=== PATIENT | female | born 1930 | race Caucasian/White ===

== ENCOUNTER 2016-07-24 09:46 | Outpatient (RCR) | payer MEDICARE, BC ==
[2016-05-20 14:11] VITALS: BP 187/74
[~2016-07-24 09:46] MED LIST: ATIVAN0.5 MG PO; CALCIUM 600 MG-1 TAB PO; DAILY VALUE1 EACH PO; ECOTRIN325 M1 PO; ENABLEX7.5 MG PO; FELODIPINE ER2.5 MG PO; GOOD SENSE ASPI81 M1 PO; HCTZ PO; HYDROCHLOROTH12.5 M1 PO; LEVAQUIN 5500 MG/TA1 PO; LEVOFLOXACIN500 M1 PO; LISINOPRIL20 MG PO; METOPROLOL SUCC50 M1 PO; MOBIC15 M1 PO; OMEGA-31 SGL PO; OMEPRAZOLE20 MG PO; PREMARIN 0.60.625 M1 VG; PROBIOTIC1 EAC1 PO; TYLENOL 650MG650 M2 PO; ZESTRIL40 MG PO; ZOFRAN ODT8 MG PO
== END 2016-08-21 13:22 ==
LOC: OPPGERO 09:46
DX: F32.1 Major depressive disorder, single episode, moderate (principal); F41.1 Generalized anxiety disorder

== ENCOUNTER 2016-08-22 10:36 | Outpatient (RCR) | payer MEDICARE, BC ==
[2016-05-20 14:11] VITALS: BP 187/74
== END 2016-09-18 10:27 ==
LOC: OPPGERO 10:36
DX: F32.1 Major depressive disorder, single episode, moderate (principal); F41.1 Generalized anxiety disorder

== ENCOUNTER 2016-09-19 07:47 | Outpatient (RCR) | payer MEDICARE, BC ==
[2016-05-20 14:11] VITALS: BP 187/74
== END 2016-10-19 15:06 ==
LOC: OPPGERO 07:47
DX: F32.1 Major depressive disorder, single episode, moderate (principal); F41.1 Generalized anxiety disorder

== ENCOUNTER 2016-10-20 09:00 | Outpatient (RCR) | payer MEDICARE, BC ==
[2016-05-20 14:11] VITALS: BP 187/74
== END 2016-11-16 15:32 ==
LOC: OPPGERO 09:00
DX: F32.1 Major depressive disorder, single episode, moderate (principal); F41.1 Generalized anxiety disorder

== ENCOUNTER 2016-11-19 08:31 | Outpatient (RCR) | payer MEDICARE, BC ==
[2016-05-20 14:11] VITALS: BP 187/74
== END 2016-12-19 16:54 ==
LOC: OPPGERO 08:31
DX: F32.1 Major depressive disorder, single episode, moderate (principal); F41.1 Generalized anxiety disorder

== ENCOUNTER 2017-01-03 12:00 | Inpatient (IN) | payer MEDICARE, BC ==
[~2017-01-03] VITALS: Ht 162.6 cm; Wt 67.1 kg
[2017-01-03 12:27] VITALS: BP 155/70
[2017-01-03 12:47] VITALS: BP 155/70
[2017-01-03] MEDS ORDERED: ASPIRIN 32325 MG/TAB PO (12:59)
[2017-01-03] MEDS ORDERED: NORCO 325 MG-51 TA1 PO (12:59)
[2017-01-03] MEDS ORDERED: ACEROLA C500 MG PO (13:00)
[2017-01-03] MEDS ORDERED: PREMARIN VAG42.5 GM VG (13:01)
[2017-01-03] MEDS ORDERED: ESCITALOPRAM5 MG PO (13:02)
[2017-01-03] MEDS ORDERED: LISINOPRIL40 MG PO (13:02)
[2017-01-03 18:23] VITALS: BP 161/67
[2017-01-03 18:55] VITALS: BP 161/67
[2017-01-04 06:19] VITALS: BP 161/70
[2017-01-04 18:39] VITALS: BP 112/52
[2017-01-05 06:28] VITALS: BP 161/64
[2017-01-05 18:43] VITALS: BP 144/71
[2017-01-06 06:24] VITALS: BP 154/51
[2017-01-06 18:29] VITALS: BP 119/47
[2017-01-07 06:21] VITALS: BP 177/60
[2017-01-07 18:21] VITALS: BP 113/42
[2017-01-08 06:27] VITALS: BP 142/59
[2017-01-08 18:12] VITALS: BP 138/56
[2017-01-09 06:19] VITALS: BP 150/54
[2017-01-09 18:06] VITALS: BP 138/55
[2017-01-10 06:21] VITALS: BP 134/53
[2017-01-10 17:54] VITALS: BP 132/52
[2017-01-11 06:20] VITALS: BP 114/54
[2017-01-11 17:54] VITALS: BP 134/58
[2017-01-12 06:20] VITALS: BP 162/63
[2017-01-12 18:29] VITALS: BP 140/56
[2017-01-13 06:17] VITALS: BP 163/66
[2017-01-13 18:42] VITALS: BP 136/61
[2017-01-14 06:25] VITALS: BP 160/65
[2017-01-14 18:14] VITALS: BP 146/58
[2017-01-15 06:30] VITALS: BP 144/73
[2017-01-15 18:38] VITALS: BP 136/58
[2017-01-16 06:28] VITALS: BP 173/83
[2017-01-16 18:17] VITALS: BP 115/45
[2017-01-17 06:20] VITALS: BP 150/66
[2017-01-17 18:44] VITALS: BP 136/65
[2017-01-18 06:20] VITALS: BP 159/62
[2017-01-18 18:10] VITALS: BP 115/77
[2017-01-19 06:28] VITALS: BP 179/72
[2017-01-19 18:21] VITALS: BP 118/51
[2017-01-20 06:36] VITALS: BP 153/56
[2017-01-20 18:30] VITALS: BP 128/56
[2017-01-21 06:24] VITALS: BP 152/61
[2017-01-21 18:08] VITALS: BP 134/52
[2017-01-22 06:20] VITALS: BP 148/59
[2017-01-22 18:11] VITALS: BP 124/45
[2017-01-23 06:22] VITALS: BP 144/58
[2017-01-23 18:10] VITALS: BP 149/52
[2017-01-24 05:52] VITALS: BP 165/66
[2017-01-24 18:22] VITALS: BP 143/67
[2017-01-25 06:25] VITALS: BP 147/63
[2017-01-25 17:59] VITALS: BP 142/60
[2017-01-26 06:26] VITALS: BP 163/70
[2017-01-26 18:14] VITALS: BP 133/58
[2017-01-27 06:25] VITALS: BP 151/60
[2017-01-27 18:23] VITALS: BP 145/58
[2017-01-28 06:31] VITALS: BP 167/70
[2017-01-28 18:12] VITALS: BP 136/55
[2017-01-29 06:23] VITALS: BP 158/60
[2017-01-29 18:31] VITALS: BP 118/55
[2017-01-30 06:27] VITALS: BP 126/51
[2017-01-30 18:24] VITALS: BP 123/47
[2017-01-31 06:28] VITALS: BP 166/80
[2017-01-31 18:05] VITALS: BP 142/59
[2017-02-01 06:18] VITALS: BP 182/83
[2017-02-01 18:18] VITALS: BP 126/48
[2017-02-02 06:21] VITALS: BP 165/75
[2017-02-02 18:20] VITALS: BP 172/57
[2017-02-03 06:23] VITALS: BP 175/79
[2017-02-03 18:34] VITALS: BP 142/72
[2017-02-04 06:24] VITALS: BP 151/64
[2017-02-04 18:15] VITALS: BP 152/63
[2017-02-05 06:18] VITALS: BP 141/57
[2017-02-05 18:14] VITALS: BP 120/58
[2017-02-06 06:16] VITALS: BP 184/63
[2017-02-06] MEDS ORDERED: ACETAMINOPHEN325 M1 PO (12:51)
[2017-02-06 18:07] VITALS: BP 152/59
[2017-02-07 06:23] VITALS: BP 159/57
== END 2017-02-07 09:32 | disposition home health service (06) | DRG 561 ==
LOC: MED/SURG 12:00
PROVIDERS: ADMIT Physician Assistant
PROC: 0DB78ZX Excision of Stomach, Pylorus, Via Natural or Artificial Opening Endoscopic, Diagnostic (ICD-10-PCS; principal; 2017-01-07)
DX: S72.001D Fracture of unspecified part of neck of right femur, subsequent encounter for closed fracture with routine healing (principal); Z96.641 Presence of right artificial hip joint; R53.81 Other malaise; I10 Essential (primary) hypertension; Z66 Do not resuscitate; K21.9 Gastro-esophageal reflux disease without esophagitis; F41.9 Anxiety disorder, unspecified; F32.9 Major depressive disorder, single episode, unspecified; W01.0XXD Fall on same level from slipping, tripping and stumbling without subsequent striking against object, subsequent encounter; Z85.3 Personal history of malignant neoplasm of breast; R13.12 Dysphagia, oropharyngeal phase; K44.9 Diaphragmatic hernia without obstruction or gangrene; K31.7 Polyp of stomach and duodenum; R09.02 Hypoxemia; K59.00 Constipation, unspecified
CPT/HCPCS: 00740; A4649; J7120

== ENCOUNTER 2017-05-07 11:00 | Outpatient (RCR) | payer MEDICARE, BC ==
[~2017-05-07 11:00] MED LIST changes: +ACEROLA C500 MG PO; +ACETAMINOPHEN325 M1 PO; +ASPIRIN 32325 MG/TAB PO; +ESCITALOPRAM5 MG PO; +LISINOPRIL40 MG PO; +NORCO 325 MG-51 TA1 PO; +PREMARIN VAG42.5 GM VG
== END 2017-05-07 16:22 | disposition home or self-care (01) ==
LOC: PT 11:00
DX: S72.001D Fracture of unspecified part of neck of right femur, subsequent encounter for closed fracture with routine healing (principal); W18.30XD Fall on same level, unspecified, subsequent encounter
CPT/HCPCS: G8978-GP; G8979-GP

== ENCOUNTER → 2018-05-01 | Outpatient (CLI) | payer MEDICARE, BC | LOC: MAMMO 12:02 → RAD 12:02 | DX: N63.21 Unspecified lump in the left breast, upper outer quadrant (principal); N63.41 Unspecified lump in right breast, subareolar; M81.0 Age-related osteoporosis without current pathological fracture; Z85.3 Personal history of malignant neoplasm of breast; Z90.12 Acquired absence of left breast and nipple; Z92.3 Personal history of irradiation; Z13.820 Encounter for screening for osteoporosis; M85.832 Other specified disorders of bone density and structure, left forearm ==